=== PATIENT | female | born 1940 | race Caucasian/White ===

== ENCOUNTER 2017-05-29 12:48 | Inpatient (IN) | payer MEDICARE, OTHER ==
[~2017-05-29] VITALS: Ht 170.2 cm; Wt 90.6 kg
[~2017-05-29 12:48] MED LIST: ASCO500T5 PO; ASPI-515 PO; CARB200T4 PO; CARV6.252 PO; CEFD300C37 PO; CLOP75TA52 PO; DOXE100C PO; DOXY100T PO; FERR324T5 PO; FURO20TA3 PO; GABA100C PO; GABA300C10 PO; HYDR-3240 PO; HYDR-3343 PO; ISOS30TA8 PO; LEVO88TA4 PO; LIOT5TAB3 PO; LISI30TA4 PO; LISI40TA PO; OMEG1CAP6 PO; PANT40TA5 PO; POTA10TA5 PO; POTA20TA6 PO; PRAV40TA2 PO; SENN1TAB7 PO
[2017-05-29] MEDS ORDERED: PLEASE ENTER HEIGHT AND WEIGHT MC SCH (13:30)
[2017-05-29] MEDS ORDERED: SODIUM CHLORIDE FLUSH 10ML SYR IVF ONE (13:30)
[2017-05-29 14:25] LABS: BASOPHILS # (AUTO) 0.02 x10^3/uL (0-0.1); BASOPHILS % (AUTO) 0 % (0-1); EOSINOPHILS # (AUTO) 0.07 x10^3/uL (0-0.4); EOSINOPHILS % (AUTO) 0 % (1-7); LYMPHOCYTES # (AUTO) 0.68 x10^3/uL (1-3.4); LYMPHOCYTES % (AUTO) 4 % (22-44); MD NO; MEAN CORPUSCULAR HEMOGLOBIN 30.8 pg (27.0-34.8); MEAN CORPUSCULAR HGB CONC 33.1 g/dL (32.4-35.8); MEAN CORPUSCULAR VOLUME 93.1 fL (80-100); MEAN PLATELET VOLUME 9.2 fL (7.4-10.4); MONOCYTES # (AUTO) 0.92 x10^3/uL (0.2-0.8); MONOCYTES % (AUTO) 6 % (2-9); NEUTROPHILS # (AUTO) 14.37 x10^3/uL (1.8-6.8); NEUTROPHILS % (AUTO) 90 % (42-75); PLATELET COUNT 257 x10^3/uL (130-400); RED BLOOD COUNT 2.61 x10^6/uL (3.82-5.3); RED CELL DISTRIBUTION WIDTH 16.8 % (9.6-15.2)
[2017-05-29 14:30] LABS: ACETONE, SERUM Negative (Negative)
[2017-05-29 14:35] LABS: PROTHROMBIN TIME 10.4 Seconds (9.6-11.5)
[2017-05-29 14:41] LABS: ALANINE AMINOTRANSFERASE 19 U/L (12-78); ALBUMIN 2.8 g/dL (3.4-5.0); ANION GAP 7 mmol/L (5-15); CALCIUM 8.3 mg/dL (8.5-10.1); CHLORIDE 104 mmol/L (98-107); CREATININE 1.61 mg/dL (0.55-1.02)
[2017-05-29 14:51] LABS: ALKALINE PHOSPHATASE 84 U/L (45-117); BILIRUBIN,TOTAL 0.3 mg/dL (0.2-1.0); TOTAL PROTEIN 7.1 g/dL (6.4-8.2)
[2017-05-29] MEDS ORDERED: CALCIUM CHLORIDE 10%, 10ML SYR IVPush ONE (15:30)
[2017-05-29] MEDS ORDERED: DEXTROSE 50%, 50ML SYRINGE IVPush ONE (15:30)
[2017-05-29] MEDS ORDERED: SODIUM BICARB 8.4%, 50ML SYRINGE IVPush ONE (15:30)
[2017-05-29] MEDS ORDERED: INSULIN REGULAR 100 UNITS/ML, 3ML VIAL IVPush ONE (15:30)
[2017-05-29] MEDS ORDERED: SODIUM CHLORIDE 0.9% 1,000 ML IV ONE (16:08)
[2017-05-29] MEDS ORDERED: SODIUM CHLORIDE FLUSH 10ML SYR IVF PRN (16:30)
[2017-05-29] MEDS ORDERED: ONDANSETRON 2MG/ML, 2ML IVPush PRN (17:30)
[2017-05-29] MEDS ORDERED: DOCUSATE 100 MG CAPSULE PO PRN (17:30)
[2017-05-29] MEDS ORDERED: LABETALOL 5MG/ML, 20ML IVPush PRN (17:30)
[2017-05-29] MEDS ORDERED: BISACODYL 10 MG SUPP PR PRN (17:30)
[2017-05-29] MEDS ORDERED: POLYETHYLENE GLYCOL 17 GM PACKET PO PRN (17:30)
[2017-05-29] MEDS ORDERED: TRAM-47 PO (17:45)
[2017-05-29] MEDS ORDERED: TAMS0.4C2 PO (17:45)
[2017-05-29] MEDS ORDERED: SODIUM BICARB 8.4%, 50ML SYRINGE ONE (17:52)
[2017-05-29] MEDS ORDERED: CALCIUM CHLORIDE 10%, 10ML SYR ONE (17:52)
[2017-05-29] MEDS ORDERED: DEXTROSE 50%, 50ML SYRINGE ONE (17:52)
[2017-05-29 18:37] LABS: CULTURE INDICATED? YES; MICROSCOPIC INDICATED
[2017-05-29 20:00] VITALS: BP 183/52
[2017-05-29] MEDS: HEPARIN 5,000 UNITS/ML, 1ML SQ SCH (22:11)
[2017-05-29] MEDS: PRAVASTATIN 40 MG TABLET PO SCH (22:12)
[2017-05-29] MEDS: CARBAMAZEPINE 200 MG TABLET PO SCH (22:12)
[2017-05-29] MEDS: FERROUS GLUCONATE 324 MG TABLET PO SCH (22:12)
[2017-05-29] MEDS: SODIUM CHLORIDE FLUSH 10ML SYR IVF SCH (22:12)
[2017-05-29] MEDS: OMEGA-3/FISH OIL CAPSULE PO SCH (22:12)
[2017-05-29] MEDS: GABAPENTIN 100 MG CAPSULE PO SCH (22:12)
[2017-05-29 22:15] LABS: CLOSTRIDIUM DIFFICILE TOXIN POSITIVE (Negative)
[2017-05-29] MEDS: SENNA/DOCUSATE TABLET PO SCH (22:15)
[2017-05-29 22:17] LABS: CLOSTRIDIUM DIFFICILE ANTIGEN POSITIVE
[2017-05-29] MEDS: metroNIDAZOLE 500 MG TABLET PO SCH (23:21)
[2017-05-30] VITALS (9 sets, daily range): BP systolic 113–158; BP diastolic 38–55
[2017-05-30 05:29] LABS: MEAN CORPUSCULAR HEMOGLOBIN 31.6 pg (27.0-34.8); MEAN CORPUSCULAR HGB CONC 33.8 g/dL (32.4-35.8); MEAN CORPUSCULAR VOLUME 93.4 fL (80-100); MEAN PLATELET VOLUME 9.1 fL (7.4-10.4); PLATELET COUNT 210 x10^3/uL (130-400); RED BLOOD COUNT 2.27 x10^6/uL (3.82-5.3); RED CELL DISTRIBUTION WIDTH 17.1 % (9.6-15.2)
[2017-05-30 05:35] LABS: ANION GAP 6 mmol/L (5-15); CALCIUM 8.2 mg/dL (8.5-10.1); CHLORIDE 103 mmol/L (98-107); CREATININE 1.23 mg/dL (0.55-1.02)
[2017-05-30] MEDS: HEPARIN 5,000 UNITS/ML, 1ML SQ SCH (06:44)
[2017-05-30 06:47] LABS: BASOPHILS # (AUTO) 0.02 x10^3/uL (0-0.1); BASOPHILS % (AUTO) 0 % (0-1); EOSINOPHILS # (AUTO) 0.13 x10^3/uL (0-0.4); EOSINOPHILS % (AUTO) 1 % (1-7); LYMPHOCYTES # (AUTO) 0.94 x10^3/uL (1-3.4); LYMPHOCYTES % (AUTO) 9 % (22-44); MD SCAN; MONOCYTES # (AUTO) 0.47 x10^3/uL (0.2-0.8); MONOCYTES % (AUTO) 5 % (2-9); NEUTROPHILS # (AUTO) 9.03 x10^3/uL (1.8-6.8); NEUTROPHILS % (AUTO) 85 % (42-75)
[2017-05-30] MEDS: SENNA/DOCUSATE TABLET PO SCH ×2 (09:00→21:00)
[2017-05-30] MEDS ORDERED: metroNIDAZOLE 500 MG TABLET PO SCH (09:00)
[2017-05-30] MEDS: SODIUM CHLORIDE FLUSH 10ML SYR IVF SCH ×2 (09:00→22:17)
[2017-05-30] MEDS: OMEGA-3/FISH OIL CAPSULE PO SCH ×3 (09:22→22:19)
[2017-05-30] MEDS: CARBAMAZEPINE 200 MG TABLET PO SCH ×2 (09:22→22:17)
[2017-05-30] MEDS: metroNIDAZOLE 500 MG TABLET PO SCH ×2 (09:22→16:59)
[2017-05-30] MEDS: CLOPIDOGREL 75 MG TABLET PO SCH (09:22)
[2017-05-30] MEDS: ASCORBIC ACID 500 MG TABLET PO SCH (09:23)
[2017-05-30] MEDS: PANTOPROZOLE 40MG TABLET PO SCH (09:23)
[2017-05-30] MEDS: ASPIRIN 81 MG TABLET EC PO SCH (09:23)
[2017-05-30] MEDS: FERROUS GLUCONATE 324 MG TABLET PO SCH ×3 (09:23→22:20)
[2017-05-30] MEDS: ISOSORBIDE MONONITRATE ER 30 MG TABLET PO SCH (09:23)
[2017-05-30] MEDS: DOXEPIN 100 MG CAPSULE PO SCH (09:23)
[2017-05-30] MEDS: LISINOPRIL 20 MG TABLET PO SCH (09:24)
[2017-05-30] MEDS: GABAPENTIN 100 MG CAPSULE PO SCH ×3 (09:24→22:19)
[2017-05-30] MEDS: LEVOTHYROXINE 88 MCG TABLET PO SCH (10:59)
[2017-05-30] MEDS: LIOTHYRONINE 5 MCG TABLET PO SCH (10:59)
[2017-05-30 16:01] LABS: CULTURE INDICATED? YES; MICROSCOPIC INDICATED
[2017-05-30] MEDS: ACETAMINOPHEN 325 MG TABLET PO PRN ×2 (17:00→22:20)
[2017-05-30] MEDS: PRAVASTATIN 40 MG TABLET PO SCH (22:18)
[2017-05-31 02:45] VITALS: BP 163/75
[2017-05-31 05:51] LABS: ANION GAP 6 mmol/L (5-15); CALCIUM 8.2 mg/dL (8.5-10.1); CHLORIDE 103 mmol/L (98-107)
[2017-05-31 05:52] LABS: CREATININE 1.11 mg/dL (0.55-1.02)
[2017-05-31 06:00] LABS: BASOPHILS # (AUTO) 0.02 x10^3/uL (0-0.1); BASOPHILS % (AUTO) 0 % (0-1); EOSINOPHILS # (AUTO) 0.52 x10^3/uL (0-0.4); EOSINOPHILS % (AUTO) 6 % (1-7); LYMPHOCYTES # (AUTO) 0.94 x10^3/uL (1-3.4); LYMPHOCYTES % (AUTO) 11 % (22-44); MD NO; MEAN CORPUSCULAR HEMOGLOBIN 31.3 pg (27.0-34.8); MEAN CORPUSCULAR HGB CONC 33.6 g/dL (32.4-35.8); MEAN CORPUSCULAR VOLUME 93.1 fL (80-100); MEAN PLATELET VOLUME 9.5 fL (7.4-10.4); MONOCYTES # (AUTO) 0.81 x10^3/uL (0.2-0.8); MONOCYTES % (AUTO) 10 % (2-9); NEUTROPHILS # (AUTO) 6.07 x10^3/uL (1.8-6.8); NEUTROPHILS % (AUTO) 73 % (42-75); PLATELET COUNT 184 x10^3/uL (130-400); RED BLOOD COUNT 2.55 x10^6/uL (3.82-5.3); RED CELL DISTRIBUTION WIDTH 16.6 % (9.6-15.2)
[2017-05-31] MEDS: LIOTHYRONINE 5 MCG TABLET PO SCH (06:11)
[2017-05-31] MEDS: LEVOTHYROXINE 88 MCG TABLET PO SCH (06:11)
[2017-05-31 06:55] VITALS: BP 133/64
[2017-05-31] MEDS: SENNA/DOCUSATE TABLET PO SCH ×2 (07:12→21:00)
[2017-05-31] MEDS: OMEGA-3/FISH OIL CAPSULE PO SCH ×3 (09:33→22:07)
[2017-05-31] MEDS: SODIUM CHLORIDE FLUSH 10ML SYR IVF SCH ×2 (09:33→22:06)
[2017-05-31] MEDS: metroNIDAZOLE 500 MG TABLET PO SCH ×3 (09:34→16:41)
[2017-05-31] MEDS: FERROUS GLUCONATE 324 MG TABLET PO SCH ×3 (09:34→22:07)
[2017-05-31] MEDS: PANTOPROZOLE 40MG TABLET PO SCH (09:34)
[2017-05-31] MEDS: ISOSORBIDE MONONITRATE ER 30 MG TABLET PO SCH (09:34)
[2017-05-31] MEDS: GABAPENTIN 100 MG CAPSULE PO SCH ×3 (09:35→22:06)
[2017-05-31] MEDS: ASPIRIN 81 MG TABLET EC PO SCH (09:35)
[2017-05-31] MEDS: LISINOPRIL 20 MG TABLET PO SCH (09:36)
[2017-05-31] MEDS: CLOPIDOGREL 75 MG TABLET PO SCH (09:37)
[2017-05-31] MEDS: DOXEPIN 100 MG CAPSULE PO SCH (09:40)
[2017-05-31] MEDS: ASCORBIC ACID 500 MG TABLET PO SCH (09:40)
[2017-05-31] MEDS: CARBAMAZEPINE 200 MG TABLET PO SCH ×2 (09:41→21:00)
[2017-05-31 13:19] VITALS: BP 143/63
[2017-05-31] MEDS ORDERED: METR500T PO (13:30)
[2017-05-31 20:00] VITALS: BP 136/65
[2017-05-31] MEDS: PRAVASTATIN 40 MG TABLET PO SCH (22:07)
[2017-06-01] MEDS: metroNIDAZOLE 500 MG TABLET PO SCH ×2 (00:46→09:30)
[2017-06-01] MEDS: ACETAMINOPHEN 325 MG TABLET PO PRN ×2 (00:46→05:37)
[2017-06-01 02:00] VITALS: BP 147/66
[2017-06-01] MEDS: LEVOTHYROXINE 88 MCG TABLET PO SCH (05:37)
[2017-06-01] MEDS: LIOTHYRONINE 5 MCG TABLET PO SCH (05:37)
[2017-06-01] MEDS: SENNA/DOCUSATE TABLET PO SCH (07:28)
[2017-06-01 09:21] VITALS: BP 148/73
[2017-06-01] MEDS: SODIUM CHLORIDE FLUSH 10ML SYR IVF SCH (09:24)
[2017-06-01] MEDS: FERROUS GLUCONATE 324 MG TABLET PO SCH (09:25)
[2017-06-01] MEDS: ASCORBIC ACID 500 MG TABLET PO SCH (09:25)
[2017-06-01] MEDS: ASPIRIN 81 MG TABLET EC PO SCH (09:26)
[2017-06-01] MEDS: GABAPENTIN 100 MG CAPSULE PO SCH (09:27)
[2017-06-01] MEDS: CLOPIDOGREL 75 MG TABLET PO SCH (09:29)
[2017-06-01] MEDS: ISOSORBIDE MONONITRATE ER 30 MG TABLET PO SCH (09:29)
[2017-06-01] MEDS: PANTOPROZOLE 40MG TABLET PO SCH (09:30)
[2017-06-01] MEDS: LISINOPRIL 20 MG TABLET PO SCH (09:31)
[2017-06-01] MEDS: OMEGA-3/FISH OIL CAPSULE PO SCH (09:31)
[2017-06-01] MEDS: CARBAMAZEPINE 200 MG TABLET PO SCH (09:32)
[2017-06-01] MEDS: DOXEPIN 100 MG CAPSULE PO SCH (09:32)
[2017-06-01] MEDS ORDERED: LINEZOLID 600 MG TABLET PO SCH (10:00)
[2017-06-01] MEDS ORDERED: FLUCONAZOLE 200 MG TABLET PO SCH (10:00)
[2017-06-01] MEDS ORDERED: FOSFOMYCIN 3 GM PACKET PO ONE (11:00)
[2017-06-01] MEDS ORDERED: FLUC100T4 PO (12:01)
== END 2017-06-01 15:00 | disposition home or self-care (01) | DRG 871 ==
LOC: ED 13:26 → EDIP 16:08 → 4WST 19:04
PROVIDERS: ADMIT Internal Medicine; ATTEND Internal Medicine
PROC: 0T9B70Z Drainage of Bladder with Drainage Device, Via Natural or Artificial Opening (ICD-10-PCS; principal; 2017-05-29)
PROC: 30233N1 Transfusion of Nonautologous Red Blood Cells into Peripheral Vein, Percutaneous Approach (ICD-10-PCS; 2017-05-29)
DX: A41.9 Sepsis, unspecified organism (principal); N17.0 Acute kidney failure with tubular necrosis; G93.40 Encephalopathy, unspecified; A04.72 Enterocolitis due to Clostridium difficile, not specified as recurrent; E44.0 Moderate protein-calorie malnutrition; I13.0 Hypertensive heart and chronic kidney disease with heart failure and stage 1 through stage 4 chronic kidney disease, or unspecified chronic kidney disease; I50.32 Chronic diastolic (congestive) heart failure; D63.1 Anemia in chronic kidney disease; E78.5 Hyperlipidemia, unspecified; E87.5 Hyperkalemia; N18.3 Chronic kidney disease, stage 3 (moderate); R73.9 Hyperglycemia, unspecified; E03.9 Hypothyroidism, unspecified; F17.200 Nicotine dependence, unspecified, uncomplicated; Z82.49 Family history of ischemic heart disease and other diseases of the circulatory system; Z90.710 Acquired absence of both cervix and uterus; Z95.5 Presence of coronary angioplasty implant and graft; Z80.9 Family history of malignant neoplasm, unspecified; Z68.31 Body mass index [BMI] 31.0-31.9, adult
CPT/HCPCS: 36415; 36430; 36600; 51702; 71045; 78278; 80048; 80053; 81001; 82010; 82140; 82803; 83605; 83690; 83880; 84132; 84443; 85025; 85610; 85730; 86850; 86900; 86923; 87040; 87077; 87086; 87106; 87186; 87324; 93005; 96374; 96375; J1644; A9560; C9898; P9016